=== PATIENT | male | born 1965 | race Caucasian/White ===

== ENCOUNTER 2018-04-23 15:54 | Emergency (ER) | payer BC ==
[~2018-04-23] VITALS: Ht 177.8 cm; Wt 90.7 kg
[2018-04-23] MEDS ORDERED: DHEA50 MG PO (16:02)
[2018-04-23 16:19] VITALS: BP 118/72
--- NOTE | 2018-04-23 16:29 | Emergency Room Report ---
History of Present Illness General Chief Complaint: General Complaint Source: Patient Present Illness HPI Patient presents with inflammation and breakdown of the skin of his left big toe. In addition to that he has some swelling in his leg. There is no calf tenderness. His girlfriend was scrubbing it down and use some chemicals. Instead of being 1 crack he's got several different cracks and the tip of the toe. He does intensive workouts on a stairmaster-like device but otherwise is not walking a lot. He states his tetanus was last given 5 years ago. The patient's seen his doctor and has had edema of his legs in the past. His doctor was talking about blaming it on rich foods and salt in his diet. He denies any chest pain, shortness of breath, orthopnea, fever, chills. He had an injury to his right knee recently. At that time he had significant swelling in his lower leg on that side. Evaluation was done for possible DVT that was negative. He's been told he needs to have a knee replacement however he's refused to have that done. He states the knee is better at this time and there is no more swelling on that side. The patient is taking testosterone, human chorionic gonadotropin among other hormones at this time. These are done under the direction of his own doctor. 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: PMH: Agreed; PSxH: Agreed Nursing Documentation-PM Past Medical History: No History, Except For Review of Systems All Other Systems: negative except mentioned in HPI Physical Exam Vital Signs Date Time Temp Pulse Resp B/P (MAP) Pulse Ox O2 Delivery O2 Flow Rate FiO2 04/23/18 15:56 97.7 71 18 118/72 95 Room Air 97.7 Sp02 EP Interpretation: reviewed, normal General Appearance: well appearing, no apparent distress, GCS 15 Head: normocephalic, atraumatic Eyes: bilateral eye PERRL, bilateral eye other - exopthalmos bilat ENT: hearing grossly normal, normal voice Neck: full range of motion, supple Respiratory: lungs clear, normal breath sounds, no respiratory distress, speaking full sentences Cardiovascular #1: regular rate, rhythm, edema - L leg and ankle Cardiovascular #2: 2+ radial (R), 2+ dorsalis pedis (L) Gastrointestinal: normal inspection, normal bowel sounds, non tender Genitourinary: no CVA tenderness Musculoskeletal: gait/station normal, normal range of motion, no calf tenderness, other - Andrea's neg Neurologic: alert, normal gait, grossly normal Psychiatric: mood/affect normal Skin: other - callous with sking break down L great toe Medical Decision Making Diagnostic Impression: Primary Impression: Cellulitis Qualified Codes: L03.032 - Cellulitis of left toe Additional Impression: Edema Qualified Codes: R60.0 - Localized edema ER Course Patient presents with left great toe skin breakdown and increased pain over last several days. Differential includes cellulitis, tenia pedis, circulatory problem, ulceration amongst others. Based on physical exam this appears cellulitic. Antibiotics and antibiotic ointment are indicated. Patient's tetanus is up-to-date. This will need to be followed. He is reluctant to consider elevating foot as he is active. No labs are indicated at this time as the patient is non-toxic and the edema is above where the infection is. Edema is a separate matter. His doctors have been looking into this. There is no evidence of DVT at this time. He knows to watch salt in his diet. Treatment plan was discussed with the patient and he needs to follow-up with his primary doctor for repeat labs. He was advised that if the foot and edema is not improved to return (or see his MD). The patient is stable for outpatient observation and treatment. Last Vital Signs Date Time Temp Pulse Resp B/P (MAP) Pulse Ox O2 Delivery O2 Flow Rate FiO2 04/23/18 17:00 97.7 18 118/72 95 Room Air 97.7 04/23/18 15:56 71 Status: improved Disposition: HOME, SELF-CARE Condition: Improved Scripts Bacitracin (Bacitracin) 28.4 Gm Oint...g. 1 APPLIC TOPIC BID, #20 GM Prov: Antwan Cosby M.D. 04/23/18 Trimethoprim/Sulfamethoxazole 160/800* (BACTRIM DS TABLET*) 1 Each Tablet 1 TAB ORAL Q12H, #14 TAB 0 Refills Prov: Antwan Cosby M.D. 04/23/18 Antwan Cosby M.D. Apr 23, 2018 16:29
[2018-04-23] MEDS ORDERED: Bacitracin Oint UD TOPIC ONE (16:30)
[2018-04-23] MEDS ORDERED: Bactrim-DS 1 tab ONE (16:30)
[2018-04-23] MEDS ORDERED: Bactrim-DS 1 tab ORAL ONE (16:30)
[2018-04-23] MEDS ORDERED: BACTRIM DS TAB1 EAC1 ORAL (16:31)
[2018-04-23] MEDS ORDERED: BACITRACIN15 GM TOPIC (16:31)
[2018-04-23 17:00] VITALS: BP 118/72
== END 2018-04-23 16:50 | disposition home or self-care (01) ==
LOC: EMR 16:25
DX: L03.032 Cellulitis of left toe (principal); L84 Corns and callosities; R60.0 Localized edema
CPT/HCPCS: 99284